=== PATIENT | female | born 1985 | race Caucasian/White ===

== ENCOUNTER 2018-03-17 11:01 | Emergency (ER) | payer OTHER ==
[2018-03-17 12:44] LABS: URINE BLOOD (Dip) POC Trace-intact (NEGATIVE); URINE GLUCOSE (Dip) POC Negative (NEGATIVE); URINE KETONES (Dip) POC Negative (NEGATIVE); URINE LEUKOCYTE EST (Dip) POC Trace (NEGATIVE); URINE NITRITE (Dip) POC Negative (NEGATIVE); URINE TOTAL PROTEIN POC Negative (NEGATIVE)
[2018-03-17] MEDS: IBUPROFEN 600 MG TAB PO (13:16)
== END 2018-03-17 13:55 | disposition home or self-care (01) ==
LOC: FTE 11:01
DX: J20.9 Acute bronchitis, unspecified (principal); R07.9 Chest pain, unspecified
CPT/HCPCS: 71045; 81003; 81025; 93005; 99284-25